=== PATIENT | male | born 1965 | race Caucasian/White ===

== ENCOUNTER → 2020-11-04 11:19 | Outpatient (BNVA) | payer OTHER, SELFPAY | PROVIDERS: Visit Provider Urology ==

== ENCOUNTER 2023-05-09 11:32 | Emergency (ER) | payer OTHER, SELFPAY ==
--- NOTE | ~2023-05-09 | XR_ITS ---
EXAMINATION: XR HIP, RIGHT CLINICAL INFORMATION: Pain COMPARISON: None available. TECHNIQUE: Two views of the right hip.. Single view of the pelvis FINDINGS: Single image of the pelvis shows the SI joints to be grossly patent. Detailed imaging of the right hip demonstrates the femoral head contour to be smooth. There is some mild loss of axial and inferior joint space loss. No bony erosion or osteopenia. Note is made of vascular calcifications overlying. XR/XR hip RT w PEL1V IMPRESSION: No acute finding. Some mild early degeneration. The femoral head contour is smooth. Vascular calcifications are noted
[2023-05-09 12:05] VITALS: BP 144/92; PULSE 51; RESP 18; TEMP 36.6; O2SAT 98; BMI 34.6
--- NOTE | 2023-05-09 12:06 | ED_ITS ---
HPI - General Adult General Chief complaint: Extremity Injury, Lower Stated complaint: hip pain radiating down leg Time Seen by Provider: 05/09/23 15:33 Source: patient Mode of arrival: ambulatory Limitations: no limitations History of Present Illness HPI narrative: 57-year-old male with history of BPH, history sciatica in the past who presents to the ER for evaluation of acute onset of right lower back pain that radiates to his hip and down his leg all the way to his foot that started 3 days ago. He cannot recall what he was doing when the pain started. He states it has been constant and worsening. He denies any falls or injuries. He states the pain is shooting and sharp in nature. It is preventing him from sleeping. He denies any urinary symptoms, bowel or bladder incontinence. He denies any weakness, numbness or tingling in the leg, just pain. He has been taking ibuprofen and Tylenol with no improvement. MD complaint: right lower back pain Onset (ago): day(s) (3) Location: back Radiation: extremity and distal Severity: severe Severity scale (1-10): 10 Quality: sharp Pain Consistency: constant Relieving factors: rest Exacerbating factors: movement Associated symptoms: denies other symptoms Treatments prior to arrival: none Related Data Home Medications Medication Instructions Recorded Confirmed terazosin 5 mg capsule 5 mg PO DAILY 11/04/20 Previous Rx's Medication Instructions Recorded cyclobenzaprine 10 mg tablet 10 mg PO TID PRN muscle spasm #14 05/09/23 tabs oxycodone-acetaminophen 5 mg-325 1 tab PO Q8H PRN severe pain 05/09/23 mg tablet (Percocet) (scale score 7-10) #6 tabs prednisone 50 mg tablet 50 mg PO DAILY #5 tabs 05/09/23 Allergies Allergy/AdvReac Type Severity Reaction Status Date / Time No Known Allergies Allergy Verified 05/09/23 12:04 Review of Systems Review of Systems: Yes all other systems are reviewed and are negative [facility] Past Medical History Medical History (Updated 05/09/23 @ 17:05 by REINIER Coffman) Diabetes mellitus, type II Psychosis Chronic back pain Microscopic hematuria Dysuria Nocturia Social History Social History (Updated 11/04/20 @ 11:22 by MARKOS Lu) Advance Directives: No Advance Directives Information Provided: Yes Physical Exam ED Vital Signs: Vital Signs - 24 hr 05/09/23 12:05 05/09/23 17:26 Temperature 98 F 97.3 F Pulse Rate 51 51 Respiratory Rate 18 20 Blood Pressure 144/92 H 146/92 H Pulse Oximetry 98 95 Oxygen Delivery Method Room Air Room Air BMI result Body Mass Index 34.6 Appearance: Alert. Oriented X3. No acute distress. HEENT: normal external inspection Neck: Normal inspection. Neck supple. CVS: Normal heart rate and rhythm. Pulses normal. Respiratory: No respiratory distress. Breath sounds normal. Abdomen: Obese, Soft and nontender. +BS x4 Back: right low lumbar and SI joint tenderness. Nontender right hip Skin: Skin warm and dry. Normal skin color. Normal skin turgor. No rashes. Extremities: No lower extremity edema. No joint swelling. Neuro/psych: Oriented X 3. No motor deficit. No sensory deficit. Normal speech and cognition. Steady gait Course Course Course Narrative: This is a rapid medical exam: Additional HPI, ROS, PE not included below will be deferred to primary provider. Patient is a 57-year-old male presenting to the ED with complaint of severe right hip pain radiating down right leg for 3 days. Family reports history of similar episode once in the past and was told he had nerve inflammation. Patient took unknown medication at home for pain without relief. He denies any saddle anesthesia, bowel or bladder incontinence, or fevers. Plan: X-ray Medications Administered Discontinued Medications Generic Name Dose Route Start Last Admin Trade Name Freq PRN Reason Stop Dose Admin Ketorolac Tromethamine 30 mg 05/09/23 16:29 05/09/23 16:51 Ketorolac Tromethamine 30 Mg/Ml Vial IM 05/09/23 16:30 30 mg ONCE ONE Administration Oxycodone HCl 10 mg 05/09/23 16:29 05/09/23 16:51 Oxycodone Hcl Immed Release 5 Mg Tablet PO 05/09/23 16:30 10 mg ONCE ONE Administration Medical Decision Making Medical Decision Making [facility] Narrative: 57 yo male presenting with 3 days of right lower back pain that radiates to the leg and right foot. no trauma. no red flag symptoms of low back pain xr hip unremarkable will treat for lumbar radiculopathy, pain is c/w compression of L4 nerve root encouraged f/u with PCP. stable for d/c home Differential Diagnosis Differential Diagnoses: The differential diagnosis associated with the presentation includes Inflammatory disorders, malignancy, trauma, osteoporosis, nerve root compression, radiculopathy, plexopathy, degenerative disc disease, disc herniation, spinal stenosis, sacroiliac joint dysfunction, facet joint injury, and less likely infection?like abscess or diskitis Independent Interpretation I performed an independent interpretation of an: Plain X-Ray Interpretation: xr without acute fracture, agree w/ radiology read Radiology Impression Discussion of test interpretation with radiology: I have reviewed the radiologist's reading. Radiologist Impression: XR/XR hip RT w PEL1V IMPRESSION: No acute finding. Some mild early degeneration. The femoral head contour is smooth. Vascular calcifications are noted Tests considered The following testing was considered but not selected: xr lumbar spine considered Prescription Management I considered prescription management with: Pain Medication Chronic Conditions Patient?s care impacted by: Other (obesity) Critical Care Time Critical Care Time Critical Care Time: No Discharge Plan Discharge Clinical Impression: Acute lumbar radiculopathy Patient Disposition: Home, Self-Care Instructions: Lumbar Radiculopathy (ED), Lower Back Exercises (ED) Additional Instructions: Your pain is most likely due to compression of a nerve in your spine. No bending, lifting or twisting. Use ice several times per day for 20 minutes at a time for the next 48 hours and then change to heat. Take medications as prescribed to help with pain and discomfort. Follow up with your Primary Care Doctor this week. If your pain worsens, if you develop new numbness, tingling, weakness, loss of function or incontinence call 911 or come back to the ER right away for evaluation. Lo m?s probable es que irizarry dolor se deba a la compresi?n de un nervio de la colum[place]. Sin doblar, levantar ni torcer. Use hielo varias veces al d?a derek 20 minutos a la vez derek las siguientes 48 horas y luego c?mbielo a calor. [employer] los medicamentos recetados para ayudar con el dolor y el malestar. Pelon un seguimiento con irizarry m?dico de atenci?n primaria esta semana. Si irizarry dolor empeora, si desarrolla nuevo entumecimiento, hormigueo, debilidad, p?rdida de funci?n o incontinencia, llame al 911 o regrese a la marilyn de emergencias de inmediato para caitlin evaluaci?n. Prescriptions: New prednisone 50 mg tablet 50 mg PO DAILY Qty: 5 0RF cyclobenzaprine 10 mg tablet 10 mg PO TID PRN (Reason: muscle spasm) Qty: 14 0RF oxycodone-acetaminophen [Percocet] 5-325 mg tablet 1 tab PO Q8H PRN (Reason: severe pain (scale score 7-10)) Qty: 6 0RF Rx Instructions: Partial Fill upon patient request. Referrals: Yoel Nogueira MD, PhD [Physician] - Cayla Montanez [Primary Care Provider] - Interventions: ED Discharge Assessment Last Done: 05/09/23 17:58 Discharge Date/Time: 05/09/23 17:59 Print Language: Upper Sorbian
[2023-05-09] MEDS: Ketorolac Tromethamine 30 MG/ML VIAL IM (16:51)
[2023-05-09] MEDS: oxyCODONE HCl Immed Release 5 MG TABLET 10 MG PO (16:51)
[2023-05-09 17:26] VITALS: BP 146/92; PULSE 51; RESP 20; TEMP 36.3; O2SAT 95
== END 2023-05-09 17:59 | disposition home or self-care (01) ==
PROVIDERS: Emergency Provider Emergency Medicine; PCP Internal Medicine
DX: M54.16 Radiculopathy, lumbar region (principal)
CPT/HCPCS: 73502; 96372; 99283; 99284; J1885